=== PATIENT | female | born 1950 | race Caucasian/White ===

== ENCOUNTER 2023-07-24 05:52 | Day surgery (SDC) | payer OTHER, MEDICARE, SELFPAY ==
[2023-07-24 07:35] VITALS: BP 147/60; PULSE 51; RESP 20; TEMP 36.4; O2SAT 100
[2023-07-24] MEDS: LACTATED RINGERS 1,000 ML 150 ML IV CONT (07:49)
--- NOTE | 2023-07-24 08:11 | WPDANESEPPF ---
Anes - Initial Pre Proc Eval Procedure: Operation Date: 07/24/23 08:30 Proposed Procedures p Colonoscopy - Mic Walker MD Date/Time: 07/24/23 08:11 Surgeon: Mic Walker MD Pre Op Diagnosis: Diverticulitis w/o perforation, IBS w/o Diarrhea Patient Data Age: 73 Gender: F Height: 1.55 m Weight: 64.6 kg Last Vital Signs Temp 36.4 C L 07/24/23 07:35 Pulse 51 L 07/24/23 07:35 Resp 20 07/24/23 07:35 BP 147/60 H 07/24/23 07:35 Pulse Ox 100 07/24/23 07:35 O2 Del Method Room Air 07/24/23 07:35 Allergies Allergy/AdvReac Type Severity Reaction Status Date / Time No Known Allergies Allergy Verified 07/24/23 07:16 Home Medications Medication Instructions Recorded Confirmed Type benzonatate 100 mg capsule 100 mg PO TID PRN cough #30 caps 12/14/22 07/24/23 Rx lisinopril 40 mg tablet 40 mg PO DAILY #90 tabs 03/17/23 07/24/23 Rx simvastatin 40 mg tablet 40 mg PO DAILY #90 tabs 03/23/23 07/24/23 Rx estradiol 1 mg tablet 0.5 mg PO DAILY #45 tabs 05/15/23 07/24/23 Rx amlodipine 10 mg tablet 10 mg PO DAILY #90 tabs 05/22/23 07/24/23 Rx hydrochlorothiazide 12.5 mg tablet 12.5 mg PO DAILY #90 tabs 05/22/23 07/24/23 Rx lubiprostone 8 mcg capsule 8 mcg PO DAILY #30 caps 06/13/23 07/24/23 Rx buspirone 15 mg tablet 15 mg PO BID #180 tabs 06/26/23 07/24/23 Rx atenolol 100 mg tablet See Rx Instructions .Route 07/03/23 07/24/23 Rx .COMPLEX #90 tabs Patient hx anesthesia problems: none Family hx anesthesia problems: none Results Review: All pre-operative results and documents have been reviewed as part of the pre-operative evaluation. [facility] Past Medical History Medical History Diverticulitis HTN (hypertension) Hyperglycemia IBS (irritable bowel syndrome) Mixed dyslipidemia Surgical History Surgical History H/O: hysterectomy Family History Family History Father Diabetes mellitus Heart disease Mother Heart disease Diabetes mellitus Social History Social History Smoking status: Current every day smoker Tobacco type: cigarettes Additional smoking assessment comments: 10 per day Alcohol intake: never Substance use: never Substance use type: does not use Lack of Transportation: No Lack of Food: Never True Current Housing: I Have Housing Concerned About Future Housing: No Difficulty Paying Gas/Electric Bills: No Difficulty Paying for Meds: No Currently Unemployed: No Difficulty w/ Childcare or Family Care: No Living arrangements: with family Occupation/Education: occupation Gender identity (if verbalized by the patient): Female Spiritual care concerns: No Anes - Eval Final PreProcedure Day of Procedure 07/24/23 08:11 Patient weight: overweight Heart: regular rate and rhythm Lungs: clear to auscultation Airway: Mallampati scale class II Neurological: alert and oriented Last oral intake: >/= 8 hours ASA classification: II Emergent: no Anesthetic plan: proceed Anesthesia type and monitoring: general GIVS and standard monitoring Results Review: All pre-operative results and documents have been reviewed as part of the pre-operative evaluation. Informed Consent: The patient's anesthetic plan and its attendant risks and benefits were discussed with the patient/family/POA. Questions were solicited and answers provided to the satisfaction of the patient/family/POA.
--- NOTE | 2023-07-24 08:32 | PM.HPGS ---
History of Present Illness History of Present Illness Consent: Risks, benefits, and alternatives have been discussed and questions answered. Patient agrees to proceed with procedure. Chief complaint: Diverticulitis w/o perforation, IBS w/o Diarrhea Narrative: Cordelia Perez is a 73 year old female with diverticulitis 05/2023 treated as outpatient, last colonoscopy 15 years ago Review of Systems Constitutional: Constitutional: Denies headache(s) and Denies weakness Eyes: Eyes: Denies blurry vision ENT: Reports Normal hearing present, Denies headache(s) and Denies neck pain Cardiovascular: Cardiovascular: Denies chest pain and Denies dyspnea Respiratory: Respiratory: Denies dyspnea Gastrointestinal: Gastrointestinal: Reports no additional gastrointestinal complaints Genitourinary: Genitourinary: Denies dysuria Musculoskeletal: Musculoskeletal: Denies neck pain Integumentary/Breasts: Skin/Breast: Denies dry skin Neurologic: Reports Normal hearing present, Denies headache(s) and Denies weakness Psychiatric: Psychiatric: Denies anxiety Endocrine: Endocrine: Denies change in body appearance Hematologic/Lymphatic: Hematologic/Lymphatic: Denies easy bleeding Allergic/Immunologic: Allergic/Immunologic: Denies urticaria PMFSH Past Medical History Medical History Diverticulitis HTN (hypertension) Hyperglycemia IBS (irritable bowel syndrome) Mixed dyslipidemia Surgical History Surgical History H/O: hysterectomy Family History Family History Father Diabetes mellitus Heart disease Mother Heart disease Diabetes mellitus Social History Social History Smoking status: Current every day smoker Tobacco type: cigarettes Additional smoking assessment comments: 10 per day Alcohol intake: never Substance use: never Substance use type: does not use Lack of Transportation: No Lack of Food: Never True Current Housing: I Have Housing Concerned About Future Housing: No Difficulty Paying Gas/Electric Bills: No Difficulty Paying for Meds: No Currently Unemployed: No Difficulty w/ Childcare or Family Care: No Living arrangements: with family Occupation/Education: occupation Gender identity (if verbalized by the patient): Female Spiritual care concerns: No Meds Home Medications and Allergies Home Medications Medication Instructions Recorded Confirmed Type benzonatate 100 mg capsule 100 mg PO TID PRN cough #30 caps 12/14/22 07/24/23 Rx lisinopril 40 mg tablet 40 mg PO DAILY #90 tabs 03/17/23 07/24/23 Rx simvastatin 40 mg tablet 40 mg PO DAILY #90 tabs 03/23/23 07/24/23 Rx estradiol 1 mg tablet 0.5 mg PO DAILY #45 tabs 05/15/23 07/24/23 Rx amlodipine 10 mg tablet 10 mg PO DAILY #90 tabs 05/22/23 07/24/23 Rx hydrochlorothiazide 12.5 mg tablet 12.5 mg PO DAILY #90 tabs 05/22/23 07/24/23 Rx lubiprostone 8 mcg capsule 8 mcg PO DAILY #30 caps 06/13/23 07/24/23 Rx buspirone 15 mg tablet 15 mg PO BID #180 tabs 06/26/23 07/24/23 Rx atenolol 100 mg tablet See Rx Instructions .Route 07/03/23 07/24/23 Rx .COMPLEX #90 tabs Allergies Allergy/AdvReac Type Severity Reaction Status Date / Time No Known Allergies Allergy Verified 07/24/23 07:16 Vital Signs Vital Signs - 24 hr 07/24/23 07:35 Temperature 97.5 F L Pulse Rate 51 L Respiratory Rate 20 Blood Pressure 147/60 H Pulse Oximetry 100 Oxygen Delivery Room Air Exam Const: General: comfortable and no acute distress HENMT: Face/Nose/Sinus: Normal nares present Eyes: General: appearance normal, both eyes and all related structures Neck: Neck: no JVD Resp: Auscultation: clear to auscultation bilaterally Cardio: Rate: regular rate Rhythm: regular rhythm GI: Inspection
[2023-07-24 08:56] VITALS: BP 136/74; PULSE 50; RESP 14; O2SAT 97
[2023-07-24 09:06] VITALS: BP 107/70; PULSE 51; RESP 15; O2SAT 100
[2023-07-24 09:16] VITALS: BP 125/66; PULSE 51; RESP 14; O2SAT 100
--- NOTE | 2023-07-24 09:17 | WPDANESPN ---
Anes - Prog Note Post-Op Date/Time: 07/24/23 09:17 Cardiovascular status: normal Respiratory status: normal Airway patency: baseline Mental status: baseline Post-Op hydration status: normal Vital Signs: Last Vital Signs Temp 36.4 C L 07/24/23 07:35 Pulse 51 L 07/24/23 09:06 Resp 15 07/24/23 09:06 BP 107/70 07/24/23 09:06 Pulse Ox 100 07/24/23 09:06 O2 Del Method Room Air 07/24/23 09:06 Pain Score (VAS): 0/10 I/O: Intake & Output 07/23/23 07/24/23 07/24/23 23:59 07:59 15:59 Intake Total 500 Balance 500 Patient Feedback: Patient satisfied with anesthetic care.
== END 2023-07-24 09:27 | disposition home or self-care (01) ==
PROVIDERS: Visit Provider Internal Medicine Gastroenterology
PROC: 0DJD8ZZ Inspection of Lower Intestinal Tract, Via Natural or Artificial Opening Endoscopic (ICD-10-PCS; CPT 45378; principal; 2023-07-24 08:30)
DX: K57.30 Diverticulosis of large intestine without perforation or abscess without bleeding (principal); K64.8 Other hemorrhoids
CPT/HCPCS: 45378